=== PATIENT | male | born 1960 | race Caucasian/White ===

== ENCOUNTER → 2018-08-26 | Outpatient (CLI) | payer OTHER ==
--- NOTE | 2018-08-26 15:30 | PCVCIMAG ---
EXAM: RIGHT SUPERFICIAL VENOUS DUPLEX INDICATION: Leg pain and swelling. FINDINGS: Right leg: No thrombus in the common femoral, main femoral, or popliteal veins. These veins are compressible. Right Great Saphenous Vein: At the saphenofemoral junction the diameter is 6.8 mm, in the mid thigh it is 10.8 mm, and in the calf it is 7.8 mm. There is significant venous insufficiency/reflux throughout. Venous insufficiency/reflux duration is 4.6 seconds. Right Small Saphenous Vein: At the saphenopopliteal junction the diameter is 5.5 mm, and in the calf it is 6.4 mm. There is significant venous insufficiency/reflux throughout. Venous insufficiency/reflux duration is 1.2 seconds. There is a cranial extension present. IMPRESSION: Right Great Saphenous Vein: Significant venous insufficiency/reflux is present as noted above. Right Small Saphenous Vein: Significant venous insufficiency/reflux is present as noted above. LOC:[place] [id number]
== END | disposition home or self-care (01) ==
LOC: PCVCIMAG 14:17
PROVIDERS: ATTEND Internal Medicine Cardiovascular Disease
DX: I87.2 Venous insufficiency (chronic) (peripheral) (principal); I83.811 Varicose veins of right lower extremity with pain; I83.813 Varicose veins of bilateral lower extremities with pain
CPT/HCPCS: 93970; 93971

== ENCOUNTER → 2019-02-12 | Outpatient (CLI) | payer OTHER ==
--- NOTE | 2019-02-12 10:51 | PCVCIMAG ---
EXAM: RIGHT SUPERFICIAL VENOUS DUPLEX INDICATION: Chronic venous insufficiency. Previous ablation procedures right leg. FINDINGS: Right leg: No thrombus in the common femoral, main femoral, or popliteal veins. These veins are compressible. 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 Right Small Saphenous Vein: Occlusion throughout the length of the right small saphenous vein consistent with satisfactory prior ablation procedure. IMPRESSION: Right Great Saphenous Vein: Satisfactory post ablation change in the right great saphenous vein. Right Small Saphenous Vein: Satisfactory post ablation change in the right small saphenous vein. LOC:[id number]
== END | disposition home or self-care (01) ==
LOC: PCVCIMAG 09:48
PROVIDERS: ATTEND Internal Medicine Cardiovascular Disease
DX: I83.811 Varicose veins of right lower extremity with pain (principal); I87.2 Venous insufficiency (chronic) (peripheral); I10 Essential (primary) hypertension; E78.00 Pure hypercholesterolemia, unspecified; Z82.49 Family history of ischemic heart disease and other diseases of the circulatory system; Z87.891 Personal history of nicotine dependence
CPT/HCPCS: 93971